=== PATIENT | male | born 1995 | race Caucasian/White ===

== ENCOUNTER 2021-07-04 20:50 | Emergency (ER) | payer OTHER ==
[2021-07-05 00:07] LABS: HEMOGLOBIN 12.4 gm/dl (14.0-17.5); RED BLOOD COUNT 3.7 M/UL (4.20-5.50); WHITE BLOOD COUNT 7.5 K/UL (4.5-11.0)
[2021-07-05 00:21] LABS: BUN/CREATININE RATIO 36 (0-10)
[2021-07-05] MEDS ORDERED: ZOFRAN ODT 4 MG4 MG PO (03:00)
== END 2021-07-05 03:46 | disposition home or self-care (01) ==
LOC: ER1 20:50
PROVIDERS: Physician Assistant
DX: U07.1 COVID-19 (principal)
CPT/HCPCS: 71045; 80053; 83605; 83690; 83735; 85025; 85652; 86140; 96374; 96375; 99284; J2060; J2405